=== PATIENT | female | born 1965 | race African-American/Black ===

== ENCOUNTER 2016-10-02 05:33 | Inpatient (IN) | payer OTHER ==
[2016-10-01 11:51] VITALS: BMI 25.0
[2016-10-02] MEDS ORDERED: ROPIVACAINE HCL 0.5% 30ML VIAL ONE (07:44)
[2016-10-02] MEDS ORDERED: MIDAZOLAM HCL 2 MG/2 ML SINGLE DOSE VIAL ONE ×2 (07:45)
[2016-10-02] MEDS ORDERED: PROPOFOL 20 ML ONE ×2 (07:55)
[2016-10-02] MEDS ORDERED: LIDOCAINE HCL/PF 2% SDV 5ML VIAL ONE (07:55)
[2016-10-02] MEDS ORDERED: SUCCINYLCHOLINE CHLORIDE 200 MG/10 ML VIAL ONE (07:55)
[2016-10-02] MEDS ORDERED: ROCURONIUM BROMIDE 50 MG/5 ML VIAL ONE (07:55)
[2016-10-02] MEDS ORDERED: ceFAZolin SODIUM 1 GM VIAL IVPB ONE (08:50)
[2016-10-02] MEDS ORDERED: ceFAZolin SODIUM 1 GM VIAL ONE (08:52)
[2016-10-02] MEDS ORDERED: DEXAMETHASONE SOD PHOSPHATE 4 MG/1 ML VIAL ONE ×2 (08:52→10:02)
[2016-10-02] MEDS ORDERED: NEOSTIGMINE METHYLSULFATE 0.5 MG/ML - 10 ML MDV ONE (09:44)
[2016-10-02] MEDS ORDERED: GLYCOPYRROLATE 0.2 MG/1 ML VIAL ONE (10:00)
[2016-10-02] MEDS ORDERED: IBUPROFEN 800 MG/8 ML IJ IVPB PRN (10:11)
--- NOTE | 2016-10-02 10:16 | OP ---
Operative Note - Note: Operative Date: 10/02/16 Pre-Operative Diagnosis: Leiomyoma of the uterus Operation: Subtotal Hysterectomy Findings: Enlarged uterus c/w 16 weeks. Multiple subserosal Myomas Post-Operative Diagnosis: Same as Pre-op Surgeon: Fauzia Scott Client Service Consultant: Radha Baires Anesthesia: General Specimens Removed: Uterus / Tubes Estimated Blood Loss (mls): 500
--- NOTE | 2016-10-02 10:19 | HP ---
Admitting History and Physical - Admission Chief Complaint: Pelvic pain History of Present Illness: 50 yo Para 2, with pelvic pain associated with Leiomyoma of the uterus is Pre op for Hysterectomy. History Source: Patient Limitations to Obtaining History: No Limitations - Past Medical History ...LMP: 07/27/16 ...: No ...Para: 2 - Past Surgical History Past Surgical History: Yes: None - Smoking History Smoking history: Never smoked Have you smoked in the past 12 months: No - Alcohol/Substance Use Hx Alcohol Use: No History of Substance Use: reports: None - Social History Usual Living Arrangement: Yes: With Spouse History of Recent Travel: No Home Medications - Allergies Allergies/Adverse Reactions: Allergies Allergy/AdvReac Type Severity Reaction Status Date / Time No Known Allergies Allergy Verified 10/02/16 06:44 - Home Medications Home Medications: Ambulatory Orders Ascorbic Acid [Vitamin C -] 500 mg PO DAILY 10/01/16 Cholecalciferol (Vitamin D3) [Vitamin D3] 2,000 unit PO DAILY 10/01/16 Ferrous Sulfate 325 mg PO DAILY 10/01/16 Family Disease History - Family Disease History Family History: Unremarkable Review of Systems - Review of Systems Constitutional: reports: No Symptoms Eyes: reports: No Symptoms HENT: reports: No Symptoms Neck: reports: No Symptoms Cardiovascular: reports: No Symptoms Respiratory: reports: No Symptoms Gastrointestinal: reports: No Symptoms Genitourinary: reports: Pain Breasts: reports: No Symptoms Reported Musculoskeletal: reports: No Symptoms Integumentary: reports: No Symptoms Neurological: reports: No Symptoms Endocrine: reports: No Symptoms Hematology/Lymphatic: reports: No Symptoms Psychiatric: reports: No Symptoms Pain Intensity: 3 Physical Examination Vital Signs: Vital Signs Temperature 97.6 F 10/02/16 06:44 Pulse Rate 75 10/02/16 06:44 Respiratory Rate 20 10/02/16 06:44 Blood Pressure 133/75 10/02/16 06:44 O2 Sat by Pulse Oximetry (%) 100 10/02/16 06:39 Constitutional: Yes: Well Nourished HENT: Yes: WNL Neck: Yes: Supple, Trachea Midline Cardiovascular: Yes: Regular Rate and Rhythm Respiratory: Yes: Regular, CTA Bilaterally Gastrointestinal: Yes: Normal Bowel Sounds Neurological: Yes: Alert, Oriented ...Motor Strength: WNL Psychiatric: Yes: Alert, Oriented Assessment/Plan Leiomyoma of the uterus Pre op for Hysterectomy Consent signed Anesthesia to see patient
[2016-10-02] MEDS ORDERED: ONDANSETRON 4 MG/2 ML VIAL IVPUSH PRN (10:33)
[2016-10-02] MEDS ORDERED: HYDROmorphone *PCA* 10MG/50ML DISP.SYRIN PCA SCH (10:45)
[2016-10-02] MEDS ORDERED: CEFAZOLIN 1 GM/D5W 50 ML IVPB SCH (18:00)
[2016-10-02] MEDS: CEFAZOLIN (PRE-DOCKED) 50 ML IVPB SCH (18:42)
[2016-10-02] MEDS: LACTATED RINGERS SOLUTION 1,000 ML IV SCH (19:00)
[2016-10-03] MEDS: CEFAZOLIN (PRE-DOCKED) 50 ML IVPB SCH (01:51)
[2016-10-03] MEDS: LACTATED RINGERS SOLUTION 1,000 ML IV SCH ×2 (04:23→12:25)
--- NOTE | 2016-10-03 09:37 | PN ---
Progress Note, Physician Chief Complaint: Pt seen/examined and doing well. Pain controlled with DIRECTOR OF PRODUCT MANAGEMENT overnight. Pt using Incentive Spirometer upon my entry to the room. AAOX3, NAD. Has not yet passed flatus. Tolerating clear diet. No void yet. Denies CP/SOB/F/C/BRIDGES. - Current Medication List Current Medications: Active Medications Hydromorphone HCl (Dilaudid Eye Dropper Assembler -) 0 mg DIRECTOR OF PRODUCT MANAGEMENT DIRECTOR OF PRODUCT MANAGEMENT SHARMAINE PRN Reason: Protocol Stop: 10/05/16 10:33 Last Admin: 10/02/16 11:25 Dose: 10 mg Lactated Ringer's (Lactated Ringers Solution) 1,000 mls @ 125 mls/hr IV ASDIR SHARMAINE Last Admin: 10/03/16 04:23 Dose: 125 mls/hr Ibuprofen (Caldolor Injection -) 800 mg IVPB Q8H PRN PRN Reason: FEVER - Objective Vital Signs: Vital Signs Temperature 99.0 F 10/03/16 02:00 Pulse Rate 84 10/03/16 06:38 Respiratory Rate 20 10/03/16 06:38 Blood Pressure 124/85 10/03/16 06:38 O2 Sat by Pulse Oximetry (%) 100 10/03/16 08:53 Constitutional: Yes: Well Nourished, No Distress, Calm Eyes: Yes: Conjunctiva Clear, EOM Intact HENT: Yes: Atraumatic, Normocephalic Neck: Yes: Supple, Trachea Midline Cardiovascular: Yes: Regular Rate and Rhythm Respiratory: Yes: Regular, CTA Bilaterally Gastrointestinal: Yes: Normal Bowel Sounds, Soft, Tenderness (mild appropriate post op tenderness) Edema: No Wound/Incision: Yes: Clean/Dry, Well Approximated, Sutures Intact, Steri Strips Psychiatric: Yes: Alert, Oriented Problem List - Problems (1) S/P partial hysterectomy Code(s): Z90.711 - ACQUIRED ABSENCE OF UTERUS WITH REMAINING CERVICAL STUMP Assessment/Plan 50 y/o POD#1 s/p abdominal supracervical hysterectomy and b/l salpingectomy for fibroids - AFVSS - encourage ambulation - pradhan removed, await void - regular diet, PO pain meds - routine care likely discharge home tomorrow
[2016-10-03] MEDS ORDERED: oxyCODONE HCL 5 MG TABLET PO PRN ×2 (09:51→09:52)
[2016-10-03] MEDS ORDERED: ACETAMINOPHEN 325 MG TABLET (FP) PO PRN (09:52)
--- NOTE | 2016-10-03 14:08 | PATH ---
Surgical Pathology Report Patient Name: BARAK YE [facility]. Rec. #: [id number] /Age/Gender: 1965 (Age: 50) / F Account: [id number] Location: [address] [place] [address] Taken: 10/02/2016 Received: 10/02/2016 Reported: 10/03/2016 Physicians: Fauzia Scott M.D. Specimen(s) Received A: PORTION RIGHT FALLOPIAN TUBE B: PORTION LEFT FALLOPIAN TUBE C: FIBROID UTERUS, BILATERAL FALLOPIAN TUBES Clinical History Leiomyomatous uterus Final Diagnosis A. PORTION OF FALLOPIAN TUBE, RIGHT, SALPINGECTOMY: PORTION OF BENIGN FALLOPIAN TUBE. B. PORTION OF FALLOPIAN TUBE, LEFT, SALPINGECTOMY: PORTION OF BENIGN FALLOPIAN TUBE WITH HYDROSALPINX AND FOCLA FIBROVASCULAR ADHESIONS. C. UTERUS, BILATERAL FALLOPIAN TUBES, ABDOMINAL SUPRACERVICAL HYSTERECTOMY, SALPINGECTOMY: CERVICAL STUMP: WITHOUT SIGNIFICANT PATHOLOGIC CHANGES. ENDOMETRIUM: ENDOMETRIAL POLYP, BY BROWN PROLIFERATIVE ENDOMETRIUM. MYOMETRIUM: ADENOMYOSIS, LEIOMYOMATA (LARGEST 5.0 CM). UTERINE SEROSA: WITHOUT SIGNIFICANT PATHOLOGIC CHANGES. PORTION OF LEFT FALLOPIAN TUBE WITH MILD HYDROSALPINX. Electronically Signed Reid Westbrook M.D. Gross Description A. Received in formalin labeled "portion of right fallopian tube" is a 3.4 cm in length portion of fallopian tube. No fimbria are present. The outer surface is romero purple and smooth. Sectioning reveals a pin-point lumen. Kick Press Setter sections are submitted in one cassette. B. Received in formalin labeled "portion of left fallopian tube" is a 2.2 x 1.3 x 0.7 cm irregular portion of soft tissue, possibly consistent with a portion of fallopian tube. No fimbria are present. The outer surface is romero-purple. Sectioning reveals a cystic lumen. Kick Press Setter sections are submitted in one cassette. C. Received in formalin labeled "uterus, bilateral fallopian tubes" is a 480 g supracervically amputated uterus with an attached portion of probable left fallopian tube. No right fallopian tube present in the specimen or within the container. The specimen measures 9.5 cm from superior to inferior, 10 cm from left to right and 8.5 cm from anterior to posterior. The serosa is ortega-pink with abundant bulging and pedunculated subserosal nodules. The endometrial cavity measures 6.5 cm in length and 2 cm from cornu to cornu. The endometrial fundus displays a 0.9 x 0.7 x 0.5 cm ortega-red, polypoid lesion. The remaining endometrium is hyperemic and averages 0.1 cm in thickness. The myometrium displays abundant intramural nodules, measuring up to 5 cm in greatest dimension. The cut surface of the subserosal and intramural nodules is ortega, firm to rubbery and displays whirled architecture. No areas of hemorrhage or necrosis are identified. The remaining myometrium is ortega-pink and trabeculated, measuring up to 4.2 cm in thickness. The attached portion of presumed left fallopian tube measures 3 cm in length. No fimbria are present. The outer surface is romero-purple. Sectioning reveals a slightly dilated lumen. Kick Press Setter sections are submitted in 14 cassettes as follows: 1-cervical stump margin of resection; 2-3-fundic polyp; 0-1-voronzog endomyometrium; 3-2-ttekgtqhg endomyometrium; 8-00-mhzqgxbbeu nodules; 18-06-fdjkvmodhz nodules; 14-probable left fallopian tube. 10/02/201610/02/2016
--- NOTE | 2016-10-04 11:00 | DS ---
Physical Examination Vital Signs: Vital Signs Temperature 100 F H 10/04/16 05:34 Pulse Rate 86 10/04/16 05:34 Respiratory Rate 18 10/04/16 05:34 Blood Pressure 128/64 10/04/16 05:34 O2 Sat by Pulse Oximetry (%) 100 10/03/16 21:00 Constitutional: Yes: Well Nourished Eyes: Yes: Conjunctiva Clear HENT: Yes: Atraumatic Neck: Yes: Supple, Trachea Midline Cardiovascular: Yes: Regular Rate and Rhythm Respiratory: Yes: Regular, CTA Bilaterally Gastrointestinal: Yes: Normal Bowel Sounds Breast(s): Yes: WNL Musculoskeletal: Yes: WNL Extremities: Yes: WNL Wound/Incision: Yes: Well Approximated, Other (Sterile strips in place, no bleeding) Neurological: Yes: Alert, Oriented ...Motor Strength: WNL Psychiatric: Yes: Alert, Oriented Discharge Summary Reason For Visit: LEIOMYOMA OF UTERUS Current Active Problems S/P partial hysterectomy (Acute) Procedures: Principal: Subtotal hysterectomy / Bilateral salpingectomy Hospital Course: Patient received additional dosage of antibiotic Post op. No blood transfusion required. - Instructions Diet, Activity, Other Instructions: Regular diet No driving, no lifting x 4 weeks. F/U with MD in 1 week. - Home Medications Comprehensive Discharge Medication List: Ambulatory Orders Ascorbic Acid [Vitamin C -] 500 mg PO DAILY 10/01/16 Cholecalciferol (Vitamin D3) [Vitamin D3] 2,000 unit PO DAILY 10/01/16 Ferrous Sulfate 325 mg PO DAILY 10/01/16
[2016-10-04 12:39] LABS: BASOPHIL 0.2 % (0-2.0); EOSINOPHIL 0.3 % (0-4.5); MCH 26.7 pg (25.7-33.7); MCHC 32.3 g/dl (32.0-36.0); MEAN CELL VOLUME 82.4 fl (80-96); MEAN PLT VOLUME 9.6 fl (7.5-11.1); NEUTROPHILS 63.7 % (42.8-82.8); PLATELET COUNT 130 K/MM3 (134-434); RDW 17.1 % (11.6-15.6); WHITE BLOOD COUNT 6.2 K/mm3 (4.0-10.0)
[2016-10-04 14:54] VITALS: BP 124/67; PULSE 78; TEMP 99.4
== END 2016-10-04 18:07 | disposition home or self-care (01) | DRG 519 ==
LOC: JASUSAT 05:33 → EDSTATUS 08:00 → J6S 13:28
PROVIDERS: ADMIT Obstetrics & Gynecology; ATTEND Obstetrics & Gynecology
PROC: 0UB70ZZ Excision of Bilateral Fallopian Tubes, Open Approach (ICD-10-PCS; 2016-10-02)
PROC: 0UT90ZZ Resection of Uterus, Open Approach (ICD-10-PCS; principal; 2016-10-02 08:00)
DX: D25.2 Subserosal leiomyoma of uterus (principal)
CPT/HCPCS: 36415; 85025; 88305-TC; 88307-TC; 94010; 94760

== ENCOUNTER 2016-11-15 15:10 | Emergency (ER) | payer OTHER ==
[2016-11-15 15:20] VITALS: TEMP 97.3; BMI 25.9
[2016-11-15] MEDS ORDERED: morphine CARPU-JECT 4 MG/1 ML DISP.SYRIN IVPUSH ONE (15:34)
[2016-11-15] MEDS ORDERED: SODIUM CHLORIDE 1,000 ML IV STA (15:34)
--- NOTE | 2016-11-15 15:39 | PDOC ---
History of Present Illness - General History Source: Patient Exam Limitations: No Limitations - History of Present Illness Initial Comments: 11/15/16 15:47 The patient is a 51-year-old female, with a significant past medical history of hysterectomy (on 10/02/16 for fibroids), presents with diffuse abdominal pain that began at 2:00 PM. Patient felt normal earlier this morning. Pt reports abdominal distention. The patient denies any fevers, chills, nausea, vomiting, or diarrhea. <Sandra Zarate - Last Filed: 11/15/16 17:27> - General History Source: Patient Exam Limitations: No Limitations <Gregorio Wall - Last Filed: 11/15/16 19:11> - General Chief Complaint: Pain Stated Complaint: PAIN Time Seen by Provider: 11/15/16 15:23 Past History <Sandra Zarate - Last Filed: 11/15/16 17:27> - Past Medical History Anemia: No Asthma: No Cancer: No Cardiac Disorders: No CVA: No COPD: No CHF: No Dementia: No Diabetes: No GI Disorders: No Disorders: No HTN: No Hypercholesterolemia: No Liver Disease: No Seizures: No Thyroid Disease: No Other medical history: none - Surgical History Abdominal Surgery: Yes (fibroids) - Psycho/Social/Smoking Cessation Hx Anxiety: No Suicidal Ideation: No Smoking History: Never smoked Have you smoked in the past 12 months: No Information on smoking cessation initiated: No Hx Alcohol Use: No Drug/Substance Use Hx: No Substance Use Type: None <Gregorio Wall - Last Filed: 11/15/16 19:11> - Past Medical History Allergies/Adverse Reactions: Allergies Allergy/AdvReac Type Severity Reaction Status Date / Time No Known Allergies Allergy Verified 11/15/16 15:16 Home Medications: Ambulatory Orders Docusate Sodium [Colace -] 100 mg PO TID #21 capsule 11/15/16 Polyethylene Glycol 3350 [Miralax (For Daily Use) -] 17 gm PO DAILY #1 bottle Review of Systems - Review of Systems Able to Perform ROS?: Yes Comments:: 11/15/16 15:47 GENERAL/CONSTITUTIONAL: No fever or chills. No weakness. HEAD, EYES, EARS, NOSE AND THROAT: No change in vision. No ear pain or discharge. No sore throat. CARDIOVASCULAR: No chest pain or shortness of breath. RESPIRATORY: No cough, wheezing, or hemoptysis. SKIN: No rash GASTROINTESTINAL: No nausea, vomiting, diarrhea or constipation. +abdominal pain , abdominal distention. GENITOURINARY: No dysuria, frequency, or change in urination. MUSCULOSKELETAL: No joint or muscle swelling or pain. No neck or back pain. NEUROLOGIC: No headache, vertigo, loss of consciousness, or change in strength/ sensation. ENDOCRINE: No increased thirst. No abnormal weight change. HEMATOLOGIC/LYMPHATIC: No anemia, easy bleeding, or history of blood clots. ALLERGIC/IMMUNOLOGIC: No hives or skin allergy. <Sandra Zarate - Last Filed: 11/15/16 17:27> *Physical Exam - Vital Signs Last Vital Signs Temp Pulse Resp BP Pulse Ox 97.3 F L 79 18 139/92 100 11/15/16 15:17 11/15/16 15:17 11/15/16 15:17 11/15/16 15:17 11/15/16 15:17 - Physical Exam Comments: 11/15/16 15:48 GENERAL: Awake, alert, and fully oriented, in no acute distress HEAD: No signs of trauma ENT: Auricles normal inspection, hearing grossly normal, nares patent, oropharynx clear EYES: PERRLA, EOMI, sclera anicteric, conjunctiva clear without exudates. Moist mucosa. NECK: Normal ROM, supple, no lymphadenopathy, JVD, or masses LUNGS: Breath sounds equal, clear to auscultation bilaterally. No wheezes, and no crackles HEART: Regular rate and rhythm, normal S1 and S2, no murmurs, rubs or gallops ABDOMEN: Soft, normoactive bowel sounds. No guarding, no rebound. No masses. + diffuse abdominal tenderness, abdominal distension EXTREMITIES: Normal range of motion, no edema. No clubbing or cyanosis. No cords, erythema, or tenderness NEUROLOGICAL: Cranial nerves II through XII grossly intact. Normal speech, normal gait SKIN: Warm, Dry, normal turgor, no rashes or lesions noted Rectal Exam: Soft brown stools, hemorrhoids appreciated. <Sandra Zarate - Last Filed: 11/15/16 17:27> - Vital Signs Last Vital Signs Temp Pulse Resp BP Pulse Ox 97.3 F L 79 18 139/92 100 11/15/16 15:17 11/15/16 15:17 11/15/16 15:17 11/15/16 15:17 11/15/16 15:17 <Gregorio Wall - Last Filed: 11/15/16 19:11> ED Treatment Course - LABORATORY CBC & Chemistry Diagram: 11/15/16 16:00 11/15/16 16:00 <Sandra Zarate - Last Filed: 11/15/16 17:27> - LABORATORY CBC & Chemistry Diagram: 11/15/16 16:00 11/15/16 16:00 - RADIOLOGY Radiology Studies Ordered: Category Date Time Status ABDOMEN & PELVIS CT WITH CONTR [CT] Stat CT Scan 11/15/16 15:34 Ordered <Gregorio Wall - Last Filed: 11/15/16 19:11> Medical Decision Making - Medical Decision Making 11/15/16 15:37 A portion of this note was documented by scribe services under my direction. I have reviewed the details of the note, within reason, and agree with the documentation with the following case summary and management plan written by me. Patient treated in the ED. Nursing notes are reviewed and incorporated into the medical decision-making. Vital signs reviewed. Peripheral IV access obtained by the nurse, laboratory studies are drawn and sent, reviewed and interpreted by myself. Vital Signs Temp Pulse Resp BP Pulse Ox 97.3 F L 79 18 139/92 100 11/15/16 15:17 11/15/16 15:17 11/15/16 15:17 11/15/16 15:17 11/15/16 15:17 51-year-old female with past medical history of hysterectomy in September 2016 for fibroids presents with diffuse abdominal pain starting at 2:00 PM. Patient was in her usual state health when noticed diffuse abdominal pain without nausea, vomiting, diarrhea or fevers. Stated she noticed some mild distention. Unclear if she is having any flatus. Rule out appendicitis versus bowel obstruction versus other acute abdominal pathology. Labs, CT scan abdomen pelvis and reassess. 11/15/16 18:52 CBC, BMP 11/15/16 16:00 11/15/16 16:00 CMP Sodium 139 mmol/L (136-145) 11/15/16 16:00 Potassium 4.1 mmol/L (3.5-5.1) 11/15/16 16:00 Chloride 104 mmol/L (98-107) 11/15/16 16:00 Carbon Dioxide 29 mmol/L (21-32) 11/15/16 16:00 Anion Gap 6 (8-16) L 11/15/16 16:00 BUN 13 mg/dL (7-18) 11/15/16 16:00 Creatinine 0.7 mg/dL (0.55-1.02) 11/15/16 16:00 Creat Clearance w eGFR > 60 (>60) 11/15/16 16:00 Random Glucose 92 mg/dL (74-106) D 11/15/16 16:00 Calcium 8.8 mg/dL (8.5-10.1) 11/15/16 16:00 Total Bilirubin 0.2 mg/dL (0.2-1.0) D 11/15/16 16:00 AST 16 U/L (15-37) 11/15/16 16:00 ALT 15 U/L (12-78) D 11/15/16 16:00 Alkaline Phosphatase 68 U/L (45-117) 11/15/16 16:00 Total Protein 7.0 g/dl (6.4-8.2) 11/15/16 16:00 Albumin 3.9 g/dl (3.4-5.0) 11/15/16 16:00 Lipase 187 U/L (73-393) 11/15/16 16:00 Urine Test Results Urine Color Colorless 11/15/16 16:27 Urine Appearance Clear 11/15/16 16:27 Urine pH 6.0 (5.0-8.0) 11/15/16 16:27 Urine Protein Negative (NEGATIVE) 11/15/16 16:27 Urine Glucose (UA) Negative (NEGATIVE) 11/15/16 16:27 Urine Ketones Negative (NEGATIVE) 11/15/16 16:27 Urine Blood Negative (NEGATIVE) 11/15/16 16:27 Urine Nitrite Negative (NEGATIVE) 11/15/16 16:27 Urine Bilirubin Negative (NEGATIVE) 11/15/16 16:27 Ur Leukocyte Esterase Negative (NEGATIVE) 11/15/16 16:27 CT abdomen and pelvis reviewed. Left ovarian cyst and moderate stool/ constipation. Pt reports feeling better. Labs reviewed. This is likely constipation. D/c with miralax, colace. Will give her magnesium citrate. <Park,Gregorio - Last Filed: 11/15/16 19:11> *DC/Admit/Observation/Transfer - Attestations Scribe Attestion: 11/15/16 15:49 Documentation prepared by Sandra Zarate, acting as medical massage therapist for Gregorio Wall MD. <Sandra Zarate - Last Filed: 11/15/16 17:27> - Discharge Dispostion Admit: No <Gregorio Wall - Last Filed: 11/15/16 19:11> Diagnosis at time of Disposition: Constipation Qualifiers: Constipation type: unspecified constipation type Qualified Code(s): K59.00 - Constipation, unspecified - Discharge Dispostion Disposition: HOME Condition at time of disposition: Stable - Prescriptions Prescriptions: Docusate Sodium [Colace -] 100 mg PO TID #21 capsule Polyethylene Glycol 3350 [Miralax (For Daily Use) -] 17 gm PO DAILY #1 bottle - Referrals Referrals: Seth Robert MD [Primary Care Provider] - Herrera Savage MD [Staff Physician] - - Patient Instructions Printed Discharge Instructions: DI for Constipation, DI for Ovarian Cyst Additional Instructions: Your CT scan shows an ovarian cyst and constipation. In this case, the constipation is likely the source of your pain. You have been given a dose of magnesium citrate here. However, for the next week, take a dose of miralax daily and take colace as prescribed. Because of your chronic constipation, please make an appointment with a GI doctor. Drink plenty of fluids and eat a high fiber diet.
[2016-11-15] MEDS ORDERED: morphine CARPU-JECT 4 MG/1 ML DISP.SYRIN ONE (15:54)
[2016-11-15 16:20] LABS: BASOPHIL 0.3 % (0-2.0); EOSINOPHIL 1.4 % (0-4.5); MCH 25.9 pg (25.7-33.7); MCHC 31.8 g/dl (32.0-36.0); MEAN CELL VOLUME 81.5 fl (80-96); MEAN PLT VOLUME 9.3 fl (7.5-11.1); NEUTROPHILS 71.1 % (42.8-82.8); PLATELET COUNT 182 K/MM3 (134-434); RDW 15.3 % (11.6-15.6); WHITE BLOOD COUNT 5.3 K/mm3 (4.0-10.0)
[2016-11-15 16:40] LABS: ALBUMIN 3.9 g/dl (3.4-5.0); ANION GAP 6 (8-16); BILIRUBIN,TOTAL 0.2 mg/dL (0.2-1.0); CALCIUM 8.8 mg/dL (8.5-10.1); CO2 29 mmol/L (21-32); CREATININE 0.7 mg/dL (0.55-1.02); GLUCOSE,RANDOM 92 mg/dL (74-106); SGOT/AST 16 U/L (15-37); SGPT/ALT 15 U/L (12-78)
[2016-11-15 16:41] LABS: ALK PHOS 68 U/L (45-117)
[2016-11-15 16:50] LABS: URINE APPEARANCE CLEAR; URINE BILIRUBIN NEGATIVE (NEGATIVE); URINE BLOOD NEGATIVE (NEGATIVE); URINE COLOR COLORLESS; URINE GLUCOSE (UA) NEGATIVE (NEGATIVE); URINE KETONE NEGATIVE (NEGATIVE); URINE LEUK ESTERASE NEGATIVE (NEGATIVE); URINE NITRITE NEGATIVE (NEGATIVE); URINE PROTEIN NEGATIVE (NEGATIVE); URINE UROBILINOGEN NEGATIVE E.U./dl (0.2-1.0)
[2016-11-15] MEDS ORDERED: MAGNESIUM CITRATE 300 ML BOTTLE PO ONE (19:11)
[2016-11-15] MEDS ORDERED: MAGNESIUM CITRATE 300 ML BOTTLE ONE (19:43)
[2016-11-15 19:54] VITALS: BP 143/69; PULSE 61
== END 2016-11-15 19:54 | disposition home or self-care (01) ==
LOC: JER 15:10
PROC: 3E033NZ Introduction of Analgesics, Hypnotics, Sedatives into Peripheral Vein, Percutaneous Approach (ICD-10-PCS; principal; 2016-11-15)
DX: K59.00 Constipation, unspecified (principal); N83.202 Unspecified ovarian cyst, left side
CPT/HCPCS: 36415; 74177-TC; 80053; 81003; 83690; 85025; 87086; 96374; 99282-25